=== PATIENT | female | born 1965 | race Caucasian/White ===

== ENCOUNTER 2018-11-02 19:20 | Emergency (ER) | payer BC ==
--- OUTSIDE RECORDS SUMMARY | 2018-11-02 19:31 | XMS REPORT | Continuity of Care Document ---
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 Active Problems Provider Date Mixed hyperlipidemia Thu Rivas MD Onset: 04/11/2014 Essential hypertension Kyung Ramirez MSN, [employer] Onset: 10/13/2018 Diabetes mellitus Kyung Ramirez MSN, [employer] Onset: 04/18/2014 Benign essential hypertension Thu Rivas MD Onset: 04/18/2014 Pulmonary embolism Thu Rivas MD Onset: 04/18/2014 Social History Type Date Description Comments Sex Unknown Tobacco Use Start: Unknown End: Quit Unknown Cigarette Use Pack Years - 12 Smoking Status Reviewed: 10/13/18 Quit ETOH Use Currently consumes alcohol socially Tobacco Use Start: Unknown End: Patient is a former smoker Unknown Recreational Drug Use Never Used Drugs Allergies, Adverse Reactions, Alerts Active Allergies Reaction Severity Comments Date Iodine 04/18/2014 Shellfish-derived Products 04/18/2014 Contrast Dye 06/14/2014 Medications Active Medications SIG Qnty Indications Ordering Provider Date Flecainide Acetate 1 by mouth twice 180tabs I48.0 Ramirez, Kyung 10/13/2018 50mg a day CLINT Solorzano, Tablets [employer] Eliquis 1 tab by mouth 180tabs I48.0 Ramirez, Kyung 10/13/2018 5mg Tablets twice a day CLINT Solorzano, [employer] Metoprolol Succinate 1 by mouth every 90tabs I48.0 Ramirez, Kyung 10/13/2018 ER evening CLINT Solorzano, 50mg Tablets ER 24HR [employer] Vitamin F01-[id number] 1 tab qd Thu Rivas MD 06/14/2014 Acid 500-400mcg Tablets Atorvastatin Calcium 1 po daily Digiovanna, Alba J, [employer] 40mg Tablets Calcium 1 tab by mouth Unknown 500mg Chewtabs every day Vitamin D3 2 by mouth every Unknown 1000Unit day Capsules Ventolin HFA Inhale Two Puffs Unknown By Mouth Every 4 108(90Base) mcg/Act Hours as Needed Aerosol Olmesartan Medoxomil 1 po daily Digiovanna, Alba J, [employer] 20mg Tablets Immunizations Description No Information Available Vital Signs Date Vital Result Comment 10/13/2018 11:04am BP Systolic Sitting Left Arm 148 mmHg BP Diastolic Sitting Left Arm 108 mmHg Heart Rate 84 /min Respiratory Rate 16 /min Height 61 inches 5'1" Weight 223.00 lb BMI (Body Mass Index) 42.1 kg/m2 BSA (Body Surface Area) 1.98 m2 [place] body weight in kilograms 48 kg O2 % BldC Oximetry 98 % ra 06/06/2018 8:48am BP Systolic 91 mmHg BP Diastolic 61 mmHg Body Temperature 97.9 F Heart Rate 88 /min Height 61 inches 5'1" Weight 217.00 lb BMI (Body Mass Index) 41.0 kg/m2 BSA (Body Surface Area) 1.96 m2 [place] body weight in kilograms 48 kg O2 % BldC Oximetry 100 % Results Test Date Facility Test Result H/L Range Note Serum or plasma 09/16/19 N2N/CCD Import Serum or plasma 104 74-106 glucose measurement 19 glucose measurement (mass/volume) (mass/volume) Serum or plasma urea 09/16/19 N2N/CCD Import Serum or plasma urea 14 7- 18 nitrogen measurement 19 nitrogen measurement (mass/vo (mass/volume) Serum or plasma 09/16/19 N2N/CCD Import Serum or plasma 0.7 0.6-1.3 creatinine 19 creatinine measurement measurement (mass/volum (mass/volume) Estimated glomerular 09/16/19 N2N/CCD Import Estimated glomerular >60 > 60 filtration rate 19 filtration rate (GFR) non-Afr (GFR) non- GFR/Bsa pred.black 09/16/19 N2N/CCD Import GFR/Bsa pred.black >60 >60 SerPl MDRD-ArVRat 19 SerPl MDRD-ArVRat Serum or plasma urea 09/16/19 N2N/CCD Import Serum or plasma urea 20.0 nitrogen/creatinine 19 nitrogen/creatinine mass rati mass ratio Sodium SerPl-sCnc 09/16/19 N2N/CCD Import Sodium SerPl-sCnc 136 136-145 19 Serum or plasma 09/16/19 N2N/CCD Import Serum or plasma 4.0 3.5-5.1 potassium 19 potassium measurement measurement Serum or plasma 09/16/19 N2N/CCD Import Serum or plasma 104 98-107 chloride measurement 19 chloride measurement Co2 SerPl-sCnc 09/16/19 N2N/CCD Import Co2 SerPl-sCnc 25 21-32 19 Serum or plasma 09/16/19 N2N/CCD Import Serum or plasma 7 Low 8-16 anion gap 19 anion gap Serum or plasma 09/16/19 N2N/CCD Import Serum or plasma 9.2 8.5-10.1 calcium measurement 19 calcium measurement (mass/volume) (mass/volume) Serum or plasma 09/16/19 N2N/CCD Import Serum or plasma 1.9 1.8-2.4 magnesium 19 magnesium measurement measurement (mass/volume (mass/volume) Serum or plasma 09/16/19 N2N/CCD Import Serum or plasma 8.2 6.4-8.2 protein measurement 19 protein measurement (mass/volume) (mass/volume) Serum or plasma 09/16/19 N2N/CCD Import Serum or plasma 3.7 3.4-5.0 albumin measurement 19 albumin measurement (mass/volume) (mass/volume) Serum globulin 09/16/19 N2N/CCD Import Serum globulin 4.5 High 1.9-4.3 measurement by 19 measurement by calculation (mass/vo calculation (mass/volume) Serum or plasma 09/16/19 N2N/CCD Import Serum or plasma 0.8 albumin/globulin 19 albumin/globulin mass ratio mass ratio Serum or plasma 09/16/19 N2N/CCD Import Serum or plasma 1.1 High 0.2-1.0 total bilirubin 19 total bilirubin measurement (mass/ measurement (mass/volume) Serum or plasma 09/16/19 N2N/CCD Import Serum or plasma 22 15-37 aspartate 19 aspartate aminotransferase aminotransferase measure measurement (enzymatic activity/volume) Serum or plasma 09/16/19 N2N/CCD Import Serum or plasma 35 12-78 alanine 19 alanine aminotransferase aminotransferase measureme measurement (enzymatic activity/volume) Serum or plasma 09/16/19 N2N/CCD Import Serum or plasma 87 45-117 alkaline phosphatase 19 alkaline phosphatase measurement ( measurement (enzymatic activity/volume) Serum or plasma 09/16/19 N2N/CCD Import Serum or plasma 2.79 0.30-4.2 thyrotropin 19 thyrotropin 0 measurement measurement (units/vol (units/volume) Capillary blood 09/16/19 N2N/CCD Import Capillary blood 115 High 70-110 glucose measurement 19 glucose measurement by glucometer by glucometer (mass/volume) Automated leukocyte 09/16/19 N2N/CCD Import Automated leukocyte 12.1 High 3.1-10.7 count 19 count (number/volume) (number/volume) Blood erythrocytes 09/16/19 N2N/CCD Import Blood erythrocytes 4.67 3.90- 5.4 automated count 19 automated count 0 (number/volume) (number/volume) Blood hemoglobin 09/16/19 N2N/CCD Import Blood hemoglobin 13.8 11.6-15. measurement 19 measurement 8 (mass/volume) (mass/volume) Hct VFr Bld Auto 09/16/19 N2N/CCD Import Hct VFr Bld Auto 40.5 36.0-46. 19 1 Automated 09/16/19 N2N/CCD Import Automated 86.7 80.9-99. erythrocyte mean 19 erythrocyte mean 0 corpuscular volume corpuscular volume (MCV (MCV) measurement Automated 09/16/19 N2N/CCD Import Automated 29.6 25.9-32. erythrocyte mean 19 erythrocyte mean 7 corpuscular corpuscular hemoglobin hemoglobin (mass per erythrocyte) Automated 09/16/19 N2N/CCD Import Automated 34.1 30.8-34. erythrocyte mean 19 erythrocyte mean 3 corpuscular corpuscular hemoglobin hemoglobin concentration measurement (mass/volume) Automated blood 09/16/19 N2N/CCD Import Automated blood 381 High 155-360 platelet count 19 platelet count (count/volume) (count/volume) Automated 09/16/19 N2N/CCD Import Automated 40.0 36-47 erythrocyte 19 erythrocyte distribution width distribution width Automated 09/16/19 N2N/CCD Import Automated 12.8 11.7-14. erythrocyte 19 erythrocyte 4 distribution width distribution width ratio ratio Automated blood 09/16/19 N2N/CCD Import Automated blood 10.7 8.9-12.4 platelet mean volume 19 platelet mean volume measurement measurement Automated blood 09/16/19 N2N/CCD Import Automated blood 68.9 40.4-72. neutrophils/100 19 neutrophils/100 8 leukocytes leukocytes Automated blood 09/16/19 N2N/CCD Import Automated blood 0.00 nucleated 19 nucleated erythrocyte count erythrocyte count (count (count/volume) Automated blood 09/16/19 N2N/CCD Import Automated blood 0.05 immature granulocyte 19 immature granulocyte count (number count (number/volume) Automated blood 09/16/19 N2N/CCD Import Automated blood 0.07 0.0-0.1 basophil count 19 basophil count (number/volume) (number/volume) Automated blood 09/16/19 N2N/CCD Import Automated blood 0.09 0.0-0.5 eosinophil count 19 eosinophil count Blood monocytes 09/16/19 N2N/CCD Import Blood monocytes 0.62 0.3-0.9 automated count 19 automated count (number/volume) (number/volume) Automated blood 09/16/19 N2N/CCD Import Automated blood 2.95 1.0-4.0 lymphocyte count 19 lymphocyte count (number/volume) (number/volume) Absolute neutrophil 09/16/19 N2N/CCD Import Absolute neutrophil 8.36 High 1.8-7.0 count 19 count Automated blood 09/16/19 N2N/CCD Import Automated blood 0.0 < 10/ nucleated 19 nucleated 100 WBC erythrocyte count as erythrocyte count as per percentage of total leukocytes Automated blood 09/16/19 N2N/CCD Import Automated blood 0.4 0.0-5.0 immature granulocyte 19 immature granulocyte count as perc count as percentage of total leukocytes Automated basophil % 09/16/19 N2N/CCD Import Automated basophil % 0.6 0.0-1.1 19 Automated eosinophil 09/16/19 N2N/CCD Import Automated eosinophil 0.7 0.0-6.6 % 19 % Automated monocyte % 09/16/19 N2N/CCD Import Automated monocyte % 5.1 4.3-13.2 19 Automated blood 09/16/19 N2N/CCD Import Automated blood 24.3 20.0-42. lymphocytes/100 19 lymphocytes/100 0 leukocytes leukocytes Serum or plasma 08/26/19 N2N/CCD Import Serum or plasma 145 <200 cholesterol 19 cholesterol measurement measurement (mass/volu (mass/volume) Serum or plasma 08/26/19 N2N/CCD Import Serum or plasma 115 <150 triglyceride 19 triglyceride measurement measurement (mass/vol (mass/volume) Serum or plasma 08/26/19 N2N/CCD Import Serum or plasma 48 >40 cholesterol in HDL 19 cholesterol in HDL measurement (ma measurement (mass/volume) Serum or plasma 08/26/19 N2N/CCD Import Serum or plasma 74 < 100 cholesterol in LDL 19 cholesterol in LDL measurement by measurement by calculation (mass/volume) Serum or plasma 08/26/19 N2N/CCD Import Serum or plasma 0.2 0.0-0.2 direct bilirubin 19 direct bilirubin measurement (mass measurement (mass/volume) Serum or plasma 08/26/19 N2N/CCD Import Serum or plasma 1.0 High 0.0-0.9 indirect bilirubin 19 indirect bilirubin measurement (ma measurement (mass/volume) HgbA1c % 08/26/19 N2N/CCD Import HgbA1c % 5.6 4.2-6.3 19 Blood estimated 08/26/19 N2N/CCD Import Blood estimated 114 average glucose 19 average glucose determination by e determination by estimation from glycated hemoglobin (mass/volume) Serum or plasma 08/26/19 N2N/CCD Import Serum or plasma 39.6 30.0-100 25-hydroxyvitamin D 19 25-hydroxyvitamin D .0 measurement (m measurement (mass/volume) Procedures Date Code Description Status 10/13/2018 31522 EKG-Tracing And Report Completed 09/15/2018 02217 ECHO Transthoracic Inc Performance Continuous Completed Electrocardio 06/06/2018 15955 Debridement Nails Any Method 6 Or More Completed 02/07/2014 [id number] Mammogram Completed Medical Devices Description No Information Available Encounters Type Date Location Provider Dx Diagnosis Office Visit 10/13/2018 Cardiology Office Kyung Ramirez I48.0 Paroxysmal atrial 11:00a CLINT Solorzano, fibrillation [employer] I10 Essential (primary) hypertension E78.2 Mixed hyperlipidemia G47.9 Sleep disorder, unspecified Office Visit 09/15/2018 12:25p Cardiology Office Thu Rivas I48.0 Paroxysmal atrial MD fibrillation R07.89 Other chest pain R00.0 Tachycardia, unspecified Z82.49 Family hx of ischem heart dis and oth dis of the circ sys Assessments Date Code Description Provider 10/13/2018 I48.0 Paroxysmal atrial fibrillation Kyung Ramirez, MSN, [facility] 10/13/2018 I10 Essential (primary) hypertension Kyung Ramirez, MSN, [facility] 10/13/2018 E78.2 Mixed hyperlipidemia Kyung Ramirez MSN, [facility] 10/13/2018 G47.9 Sleep disorder, unspecified Kyung Ramirez MSN, [facility] 09/15/2018 I48.0 Paroxysmal atrial fibrillation Thu Rvias MD 09/15/2018 R07.89 Other chest pain Thu Rivas MD 09/15/2018 R00.0 Tachycardia, unspecified Thu Rivas MD 09/15/2018 Z82.49 Family history of ischemic heart Thu Rivas MD disease and other diseases of the circulatory system 06/06/2018 E11.9 Type 2 diabetes mellitus without Cecilio Pavon DPM complications Plan of Treatment Future Appointment(s):11/21/2018 11:45 am - Thu Rivas MD at Cardiology Office Functional Status Functional Condition Comment Date Status Glasses Active Independent with all ADL's Active Mental Status Description No Information Available Referrals Refer to Reason for Referral Status Appt Date Jadon Cardona MD Scheduled 10/27/[address] [place], [place] [id number] [phone]
--- OUTSIDE RECORDS SUMMARY | 2018-11-02 19:31 | XMS REPORT | Continuity of Care Document ---
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: 10/13/2018 Diabetes mellitus Kyung Ramirez MSN, 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 Onset: 04/18/2014 Benign essential hypertension Thu Rivas [...] 10/13/2018 50mg a day CLINT Solorzano, Tablets 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 Eliquis 1 tab by mouth 180tabs I48.0 Ramirez, Kyung 10/13/2018 5mg Tablets twice a day CLINT Solorzano, 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 Metoprolol Succinate 1 by mouth every 90tabs I48.0 Kyung Ramirez 10/13/2018 ER evening CLINT Solorzano, 50mg Tablets ER 24HR 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 Vitamin H89-Wbzcs 1 tab qd Thu Rivas MD 06/14/2014 Acid 500-400mcg Tablets Atorvastatin Calcium 1 po daily Digiovanna, Alba J, 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 40mg Tablets Calcium 1 tab by mouth Unknown 500mg Chewtabs every day Vitamin D3 2 by mouth every Unknown 1000Unit day Capsules Ventolin HFA Inhale Two Puffs Unknown By Mouth Every 4 108(90Base) mcg/Act Hours as Needed Aerosol Olmesartan Medoxomil 1 po daily Digiovanna, Alba J, 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 20mg Tablets Immunizations Description No Information Available Vital Signs Date Vital Result Comment 10/13/2018 11:04am BP Systolic Sitting Left Arm 148 mmHg BP Diastolic Sitting Left Arm 108 mmHg Heart Rate 84 /min Respiratory Rate 16 /min Height 61 inches 5'1" Weight 223.00 lb BMI (Body Mass Index) 42.1 kg/m2 BSA (Body Surface Area) 1.98 m2 [place] body weight in kilograms 48 kg O2 % BldC Oximetry 98 % ra 06/06/2018 8:48am BP Systolic 91 mmHg BP Diastolic 61 mmHg Body Temperature 97.9 F Heart Rate 88 /min Height 61 inches 5'1" Weight 217.00 lb BMI (Body Mass Index) 41.0 kg/m2 BSA (Body Surface Area) 1.96 m2 [place] body weight in kilograms 48 kg O2 % BldC Oximetry 100 % Results Test Date Facility Test Result H/L Range Note Automated blood 09/16/19 N2N/CCD Import Automated blood 0.00 nucleated 19 nucleated erythrocyte count erythrocyte count (count (count/volume) Serum or plasma 09/16/19 N2N/CCD Import Serum [...] 20.0-42. lymphocytes/100 19 lymphocytes/100 0 leukocytes leukocytes Automated blood 09/16/19 N2N/CCD Import Automated blood 68.9 40.4-72. neutrophils/100 19 neutrophils/100 8 leukocytes leukocytes Serum or plasma 08/26/19 N2N/CCD [...] (mass/volume) Procedures Date Code Description Status 10/13/2018 68263 EKG-Tracing And Report Completed 09/15/2018 31192 ECHO Transthoracic Inc Performance Continuous Completed Electrocardio 06/06/2018 94240 Debridement Nails Any Method 6 Or More Completed 02/07/2014 [id number] Mammogram Completed Medical Devices Description No Information Available Encounters Type Date Location Provider Dx Diagnosis Office Visit 10/13/2018 Cardiology Office Kyung Ramirez I48.0 Paroxysmal atrial 11:00a CLINT Solorzano, fibrillation 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 I10 Essential (primary) hypertension E78.2 Mixed hyperlipidemia G47.9 Sleep disorder, unspecified Assessments Date Code Description Provider 10/13/2018 I48.0 Paroxysmal atrial fibrillation Kyung Ramirez, MSN, [facility] 10/13/2018 I10 Essential (primary) hypertension Kyung Ramirez, CLINT, [facility] 10/13/2018 E78.2 Mixed hyperlipidemia Kyung Ramirez, CLINT, [facility] 10/13/2018 G47.9 Sleep disorder, unspecified Kyung Ramirez, CLINT, [facility] 09/15/2018 R07.89 Other chest pain Thu Rivas MD 06/06/2018 E11.9 Type 2 diabetes mellitus without Cecilio Pavon DPM complications Plan of Treatment Future Appointment(s):11/21/2018 11:45 am - Thu Rivas MD at Cardiology [place]/31/2018 8:20 am - Cecilio Pavon DPM at Podiatry Office Functional Status Functional Condition Comment Date Status Glasses Active Independent with all ADL's Active Mental Status Description No Information Available Referrals Description No Information Available
--- OUTSIDE RECORDS SUMMARY | 2018-11-02 19:31 | XMS REPORT | Continuity of Care Document ---
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 ETOH Use Rare Use Of Alcohol Recreational Drug Use Never Used Drugs Allergies, Adverse Reactions, Alerts Active Allergies Reaction Severity Comments Date Seafood 10/27/2018 Medications Active Medications SIG Qnty Indications Ordering Provider Date Atorvastatin Calcium 1 by mouth every Unknown 40mg day Tablets Metoprolol Succinate ER 1 by mouth every Unknown day 50mg Tablets ER 24HR Olmesartan Medoxomil Unknown 20mg Tablets Calcium 600 by mouth twice a Unknown 600mg Tablets day Vitamin B12 1 by mouth every Unknown 1000mcg Tablets day ER Vitamin D-3 weekly Unknown 1000Unit Capsules Flecainide Acetate Unknown 50mg Tablets Eliquis Unknown 5mg Tablets Immunizations Description No Information Available Vital Signs Date Vital Result Comment 10/27/2018 9:45am Weight 230.00 lb Height 60 inches 5'0" BMI (Body Mass Index) 44.9 kg/m2 BP Systolic 124 mmHg BP Diastolic 75 mmHg Heart Rate 76 /min O2 % BldC Oximetry 98 % Body Temperature 97.6 F Stephen Score 5 Neck Circumference in inches 16 Pain Level 0 Results Description No Information Available Procedures Date Code Description Status 09/15/2018 [id number] Bone Mineral Density Test Completed 09/15/2018 [id number] Diabetic Retinal Eye Exam Completed 09/15/2018 [id number] Diabetic Foot Exam Completed Medical Devices Description No Information Available Encounters Description No Information Available Assessments Description No Information Available Plan of Treatment No Information Available Functional Status Description No Information Available Mental Status Description No Information Available Referrals Description No Information Available
[2018-11-02 20:38] VITALS: BP 120/85
--- NOTE | 2018-11-02 21:50 | UC ---
Knee Pain HPI - HPI Summary HPI Summary: 53-year-old female presents with complaints of nontraumatic right knee pain for the past week. Describes pain as sharp. Nonradiating. Worsens with walking, weightbearing, and climbing stairs. Has taken acetaminophen with minimal relief in pain. Denies fever, chills, erythema, ecchymosis, edema, chest pain, shortness of breath, calf pain or swelling, numbness, or tingling. - History of Current Complaint Chief Complaint: UCLowerExtremity Stated Complaint: RIGHT KNEE PAIN Time Seen by Provider: 11/02/18 21:13 Hx Obtained From: Patient Pain Intensity: 7 - Allergies/Home Medications Allergies/Adverse Reactions: Allergies Allergy/AdvReac Type Severity Reaction Status Date / Time Iodine and Iodide Containing Allergy Unknown Difficulty Verified 11/02/18 20:23 Produc Breathing Home Medications: Home Medications Apixaban* [Eliquis*] 5 mg PO DAILY 11/02/18 [History Confirmed 11/02/18] Atorvastatin* [Lipitor*] 40 mg PO DAILY 11/02/18 [History Confirmed 11/02/18] Calcium Carbonate [Calcium] 500 mg PO DAILY 11/02/18 [History Confirmed 11/02/18 ] Cholecalciferol (Vitamin D3) [Vitamin D3] 1,000 unit PO 11/02/18 [History] Cyanocobalamin (Vitamin B-12) [Vitamin B-12] 1,000 mcg PO 11/02/18 [History] Flecainide TAB* [Tambocor TAB*] 50 mg PO BID 11/02/18 [History Confirmed ] Metoprolol Succinate [Kapspargo Sprinkle] 50 mg PO BEDTIME 11/02/18 [History Confirmed 11/02/18] Olmesartan (NF) [Benicar (NF)] 20 mg PO DAILY 11/02/18 [History Confirmed ] PMH/Surg Hx/FS Hx/Imm Hx Endocrine History: Diabetes, Dyslipidemia Cardiovascular History: Hypertension, Atrial Fibrillation - Surgical History Surgical History: Yes Surgery Procedure, Year, and Place: Rt MASTECTOMY W/ IMPLANT- 2003;Lt BREAST - FATTY TUMOR & REDUCTION; GALLBLADDER; POWER PORT-NOW REMOVED, TUBAL LIGATION, HYSTERECTOMY, 2 C-SECTIONS - Family History Known Family History: Positive: Non-Contributory - Social History Occupation: Employed Full-time Lives: With Family Alcohol Use: Occasionally Substance Use Type: None Smoking Status (MU): Former Smoker When Did the Patient Quit Smoking/Using Tobacco: OVER 20 YEARS AGO Review of Systems All Other Systems Reviewed And Are Negative: Yes Constitutional: Positive: Negative Skin: Negative: Bruising Respiratory: Positive: Negative Cardiovascular: Positive: Negative Gastrointestinal: Positive: Negative Genitourinary: Positive: Negative Motor: Negative: Weakness Neurovascular: Negative: Decreased Sensation Musculoskeletal: Positive: Arthralgia - See HPI Neurological: Positive: Negative Is Patient Immunocompromised?: No Physical Exam - Summary Physical Exam Summary: GENERAL APPEARANCE: Well developed, well nourished, alert and cooperative, and appears to be in no acute distress. CARDIAC: Normal S1 and S2. No S3, S4 or murmurs. Rhythm is regular. There is no peripheral edema, cyanosis or pallor. Extremities are warm and well perfused. Capillary refill is less than 2 seconds. Peripheral pulses intact. LUNGS: Clear to auscultation without rales, rhonchi, wheezing or diminished breath sounds. ABDOMEN: Positive bowel sounds. Soft, nondistended, nontender. No guarding or rebound. No masses or hepatosplenomegally. MUSKULOSKELETAL: Normal muscular development. Limping gait. EXTREMITIES: Tenderness to the lateral right knee joint without gross deformity , erythema, ecchymosis, or edema. Full passive ROM without crepitus. Circulation and sensation in tact. SKIN: Skin normal color, texture and turgor with no lesions or eruptions. Triage Information Reviewed: Yes Vital Signs: Initial Vital Signs Temp 97.8 F 11/02/18 20:32 Pulse 83 11/02/18 20:32 Resp 20 11/02/18 20:32 BP 120/85 11/02/18 20:32 Pulse Ox 99 11/02/18 20:32 Vital Signs Reviewed: Yes Diagnostics - Radiology No standard instances Radiology Interpretation Completed By: ED Physician - Arthritic changes including some bone spurs within the joint space. Narrowing of the petellofemoral joint space. Knee Pain Course/Dx - Course Course Of Treatment: 53-year-old female presents with complaints of nontraumatic right knee pain for the past week. Describes pain as sharp. Nonradiating. Worsens with walking, weightbearing, and climbing stairs. Has taken acetaminophen with minimal relief in pain. Denies fever, chills, erythema, ecchymosis, edema, chest pain, shortness of breath, calf pain or swelling, numbness, or tingling. Afebrile. Vital signs stable. Patient had tenderness to the lateral right knee joint without gross deformity, erythema, ecchymosis, or edema. Full passive ROM without crepitus. Circulation and sensation intact. Remainder of exam is unremarkable. X-ray showed arthritic changes especially to the patellofemoral joint space but no acute fracture or dislocation. Reviewed results with the patient. Recommending conservative treatment for right knee arthritis. She is to follow-up with orthopedic surgery in 7 days if symptoms are not improving. Anticipatory guidance and warning symptoms are reviewed with the patient. Verbalizes understanding and agrees with plan of care. - Differential Dx/Diagnosis Differential Diagnosis/HQI/PQRI: Bursitis, Fracture (Closed), Sprain, Other - Arthritis Provider Diagnosis: Right knee pain Discharge ED - Sign-Out/Discharge Documenting (check all that apply): Patient Departure All imaging exams completed and their final reports reviewed: Yes - Discharge Plan Condition: Stable Disposition: HOME Patient Education Materials: Knee Pain (ED) Referrals: Alba Soliman [Primary Care Provider] - Monty Moyer MD [Medical Doctor] - 7 Days Additional Instructions: The x-ray performed in the clinic today showed no evidence of a fracture. The x -ray will be reviewed by the radiologist tomorrow we will notify your if they see anything that we will change her plan of care. Rest the knee as much as possible. You may walk and bear weight as tolerated. Apply ice to the affected area for 15-20 minutes at least 4 times a day to help with the pain and swelling. Elevate the leg to help reduce swelling. Take acetaminophen (Tylenol) according to directions as needed for pain. Follow up with orthopedic surgery in 7 days if symptoms do not improve. Seek immediate medical attention if you have severe pain not managed with pain medication, you are unable to walk or bear any weight, develop numbness or tingling in the leg, foot, or toes, or have any worsening of symptoms. - Billing Disposition and Condition Condition: STABLE Disposition: Home
--- NOTE | 2018-11-03 09:10 | UC ---
- Progress Note Progress Note: Imaging reviewed. X-ray shows no fracture in the knee. This was appropriately identified by the provider last night. No change in plan. Course/Dx - Diagnoses Provider Diagnoses: Right knee pain Discharge ED - Sign-Out/Discharge Documenting (check all that apply): Post-Discharge Follow Up All imaging exams completed and their final reports reviewed: Yes - Discharge Plan Condition: Stable Disposition: HOME Patient Education Materials: Knee Pain (ED) Referrals: Monty Moyer MD [Medical Doctor] - 7 Days Alba Soliman [Primary Care Provider] - Additional Instructions: The x-ray performed in the clinic today showed no evidence of a fracture. The x -ray will be reviewed by the radiologist tomorrow we will notify your if they see anything that we will change her plan of care. Rest the knee as much as possible. You may walk and bear weight as tolerated. Apply ice to the affected area for 15-20 minutes at least 4 times a day to help with the pain and swelling. Elevate the leg to help reduce swelling. Take acetaminophen (Tylenol) according to directions as needed for pain. Follow up with orthopedic surgery in 7 days if symptoms do not improve. Seek immediate medical attention if you have severe pain not managed with pain medication, you are unable to walk or bear any weight, develop numbness or tingling in the leg, foot, or toes, or have any worsening of symptoms. - Billing Disposition and Condition Condition: STABLE Disposition: Home
== END 2018-11-02 22:06 | disposition home or self-care (01) ==
LOC: UCCORT 19:20
DX: M25.561 Pain in right knee (principal); E11.9 Type 2 diabetes mellitus without complications; E78.5 Hyperlipidemia, unspecified; I10 Essential (primary) hypertension; I48.91 Unspecified atrial fibrillation; Z87.891 Personal history of nicotine dependence
CPT/HCPCS: 99211; G0463